=== PATIENT | male | born 1955 | race Caucasian/White ===

== ENCOUNTER → 2019-01-20 | Outpatient (REF) | payer BC | LOC: M LAB LCGH 15:06 | PROVIDERS: ATTEND Physician Assistant | DX: D48.5 Neoplasm of uncertain behavior of skin (principal) ==

== ENCOUNTER → 2021-04-27 | Outpatient (CLI) | payer BC ==
[~2021-04-27] MED LIST: ABIR250T; CALCTAB89 PO; CRAN450T4 PO; DEXA4TA PO; ELIQ5TAB; LEXA1TAB2 PO; LIDOCAINE 1% MDV 20ML VIAL As Ordered ONE; MAGN250T7 PO; MIDAZOLAM INJ 2MG/2ML VIAL (J2250 PER 1MG) As Ordered ONE; NOXI1TAB PO; NS 1,000 ML IV SCH; OMEP1CAP73 PO; ONDA8TAB10 PO; PRAV80TA2; PRED5PAK PO; PROC10TA4 PO; ceFAZolin 2 GM/D5W 50 ML IV BAG (J0690 PER 500MG) As Ordered ONE; ceFAZolin SOD 2 GM in IV 1 EA IV ONE; diphenhydrAMINE 50MG/ML VIAL (J1200) As Ordered ONE; fentaNYL 100 MCG/2 ML INJECTION (J3010) As Ordered ONE
[2021-04-27 16:11] VITALS: BP 123/57
--- NOTE | 2021-04-28 13:13 | IRPON ---
IR Postoperative Note Date Of Procedure: Apr 27, 2021 Time Of Procedure: 16:00 IR Postoperative Note IR Ultrasound and fluoroscopy guided port placement IR Ultrasound of the neck. IR Moderate sedation. Clinical indication: Prostate cancer. Physician: Dr. Stein. Procedure: The patient was advised of the benefits, risks, and alternatives of the procedure and informed consent was obtained. A time-out was performed with verification of the patient's name, MRN, site of procedure and type of procedure to be performed. The patient was positioned in the supine position on the angiographic table. The site was prepped and draped in the usual sterile fashion. Moderate sedation was performed by the physician including the presence of an independent trained RN who assisted and monitored the patient's level of consciousness and physiologic status. Following the administration of fentanyl and Versed , the physician spent 45 minutes of continuous face to face time with the patient. Ultrasound of the neck reveals a patent and compressible right internal jugular vein. A pigment pumper radiograph reveals no gross abnormality. The neck and anterior chest wall were anesthetized with lidocaine. The right internal jugular vein was accessed using a microintroducer needle under ultrasound guidance, via a lateral approach. An 018 wire was advanced into the superior vena cava, the needle was removed and a microsheath was placed. An Amplatz wire was then passed into the inferior vena cava. An incision at the internal jugular vein access site and anterior chest wall were made using a scalpel. An incision was made at the anterior chest wall. A small pocket was created using a combination of blunt and sharp dissection. A tunneling device was then used to pass the catheter from the pocket to the neck puncture site. An 8- [employer] Smart power port was then positioned in the pocket. The catheter was then measured and cut. The introducer sheath was exchanged for a peel-away sheath. The catheter was passed through the peel-away sheath into the internal jugular vein and the peel-away sheath was removed. The port tip was positioned at the cavoatrial junction. The port was then accessed with a Montgomery needle. The port flushes and aspirates well. The puncture site in the neck was closed. The chest wall incision was then closed with 2-0 Vicryl and 4-0 Monocryl. Glue and Steri- Strips were applied. A sterile dressing was then applied. The patient tolerated the procedure well and was returned to the PRU in stable condition. Estimated blood loss: <5 ml. Complications: None. Conclusion: 1. Successful placement of an 8-[employer] Smart power port via the right internal jugular vein. The port is ready for immediate use. 2. Patient to follow up in IR clinic in 2 weeks. Thank you for this referral. GREG STEIN MD Apr 28, 2021 13:13
== END ==
LOC: M IRPRO 11:29
PROVIDERS: ATTEND Specialist
DX: C61 Malignant neoplasm of prostate (principal)
CPT/HCPCS: 36561; 99152; 99153; C1769; C1788; C1894; J0690; J1200; J1642; J1644; J2250; J3010

== ENCOUNTER → 2021-05-17 | Outpatient (POV) | payer BC ==
[~2021-05-17] VITALS: Ht 172.7 cm; Wt 84.0 kg
[~2021-05-17] MED LIST changes: -LIDOCAINE 1% MDV 20ML VIAL As Ordered ONE; -MIDAZOLAM INJ 2MG/2ML VIAL (J2250 PER 1MG) As Ordered ONE; -NS 1,000 ML IV SCH; -ceFAZolin 2 GM/D5W 50 ML IV BAG (J0690 PER 500MG) As Ordered ONE; -ceFAZolin SOD 2 GM in IV 1 EA IV ONE; -diphenhydrAMINE 50MG/ML VIAL (J1200) As Ordered ONE; -fentaNYL 100 MCG/2 ML INJECTION (J3010) As Ordered ONE
[2021-05-17 08:30] VITALS: BP 121/71
--- NOTE | 2021-05-19 13:59 | IRPN ---
[facility] IR Progress Note IR Progress Note DATE: May 17, 2021 FOLLOW-UP: Patient doing well status post port placement. Denies any fevers, chills, pain or discharge from site. ON EXAMINATION: Port site healed. Glue and Steri-Strips are no longer there. No redness, fluctuance or discharge. IMPRESSION: Doing well status post port placement. Port site is healed. No further follow-up scheduled unless initiated by patient and/or referring provider. Thank you for this referral Allergies Coded Allergies: No Known Allergies (Verified Allergy, Unknown, 03/18/21) VS,Fishbone, I+O VS, Fishbone, I+O Vital Signs Date Time Temp Pulse Resp B/P (MAP) Pulse Ox O2 Delivery O2 Flow Rate FiO2 05/17/21 08:30 97.8 86 20 121/71 (88) 98 Room Air GREG VELEZ MD May 19, 2021 13:59
== END ==
LOC: M IRPOV 08:23
PROVIDERS: ATTEND Radiology Diagnostic Radiology
DX: Z45.2 Encounter for adjustment and management of vascular access device (principal)

== ENCOUNTER → 2021-09-22 | Outpatient (CLI) | payer BC ==
[~2021-09-22] MED LIST changes: +FURO20TA2 PO; +LEVO500T4 PO; +ONDA-84 PO; -ONDA8TAB10 PO; -PROC10TA4 PO; +PROC10TA5 PO
== END ==
LOC: M ONCR 12:57
PROVIDERS: ATTEND General Practice
DX: C61 Malignant neoplasm of prostate (principal); C79.51 Secondary malignant neoplasm of bone; R32 Unspecified urinary incontinence; Z93.3 Colostomy status

== ENCOUNTER 2021-10-14 08:43 | Outpatient (RCR) | payer BC ==
[~2021-10-14 08:43] MED LIST changes: +ASPI81CH33 PO; +ERLE60TA PO
== END 2021-10-29 ==
LOC: M ONCR 08:43
PROVIDERS: ATTEND General Practice
DX: C79.51 Secondary malignant neoplasm of bone (principal)

== ENCOUNTER → 2022-01-18 | Outpatient (CLI) | payer BC ==
[~2022-01-18] MED LIST changes: +XTAN40CA PO
== END ==
LOC: M ONCR 14:16
PROVIDERS: ATTEND General Practice
DX: C79.51 Secondary malignant neoplasm of bone (principal); C61 Malignant neoplasm of prostate; N36.0 Urethral fistula; K60.4 Rectal fistula; K46.9 Unspecified abdominal hernia without obstruction or gangrene; Z79.899 Other long term (current) drug therapy; Z79.82 Long term (current) use of aspirin; Z92.21 Personal history of antineoplastic chemotherapy; Z92.3 Personal history of irradiation; Z93.3 Colostomy status

== ENCOUNTER → 2023-10-11 | Outpatient (CLI) | payer MEDICARE ==
[~2023-10-11] MED LIST changes: +BACTDSTA PO; +BUSP5TA; +GALZ25CA PO; +GLYCCAP PO; +LEVO1TAB39 PO; -LEVO500T4 PO; +NEPHTAB2 PO; +ONETAB9 PO; +OXYB10TA23; +PRED5TA PO; +TRAN650T PO
== END ==
LOC: M ONCR 10:37
PROVIDERS: ATTEND General Practice
DX: R31.0 Gross hematuria (principal); C61 Malignant neoplasm of prostate; C79.51 Secondary malignant neoplasm of bone; C79.11 Secondary malignant neoplasm of bladder; Z71.2 Person consulting for explanation of examination or test findings; Z79.818 Long term (current) use of other agents affecting estrogen receptors and estrogen levels; Z79.82 Long term (current) use of aspirin; Z79.899 Other long term (current) drug therapy; Z90.79 Acquired absence of other genital organ(s); Z92.21 Personal history of antineoplastic chemotherapy; Z92.3 Personal history of irradiation; Z93.3 Colostomy status

== ENCOUNTER 2023-10-16 22:35 | Inpatient (IN) | payer MEDICARE ==
[~2023-10-16] VITALS: Ht 172.7 cm; Wt 97.7 kg
[~2023-10-16 22:35] MED LIST changes: -BUSP5TA; +BUSP5TA PO; -PRAV80TA2; +PRAV80TA2 PO
[2023-10-17] VITALS (17 sets, daily range): BP systolic 112–189; BP diastolic 57–89; TEMP 96.1–98; O2SAT 91–100
[2023-10-17 00:45] LABS: BASO % 0.3 % (0.0-1.0); HEMATOCRIT 23.8 % (42.0-52.0); HEMOGLOBIN 8.1 g/dl (13.5-17.5); LYMPH # 0.4 10^3/uL (1.5-5.0); LYMPH % 5.4 % (24.0-44.0); MEAN CORPUSCULAR HEMOGLOBIN 32.7 pg (27.0-33.0); MONO # 0.6 10^3/uL (0.0-0.8); MONO % 7.7 % (2.0-8.0); NEUTROPHILS # 6.5 10^3/uL (1.5-8.5); NEUTROPHILS % 86.2 % (36.0-66.0); RED BLOOD COUNT 2.48 10^6/uL (4.30-6.10); WHITE BLOOD COUNT 7.6 10^3/uL (4.0-10.0)
[2023-10-17 01:07] LABS: IRON (FE) 31 UG/DL (65-175)
[2023-10-17 01:08] LABS: ALKALINE PHOSPHATASE 90 U/L (46-116); ALT/SGPT 20 U/L (7.0-40); AST/SGOT 31 U/L (<34); BILIRUBIN,TOTAL 0.5 MG/DL (0.3-1.2); BLOOD UREA NITROGEN 20 MG/DL (9-23); CALCIUM LEVEL 8.7 MG/DL (8.3-10.6); CARBON DIOXIDE LEVEL 23 MMOL/L (20-31); CHLORIDE LEVEL 107 MMOL/L (98-107); CREATININE FOR GFR 0.99 MG/DL (0.70-1.30); GLOMERULAR FILTRATION RATE > 60.0 (>49); GLUCOSE, FASTING 161 MG/DL (74-106); MAGNESIUM LEVEL 1.4 MG/DL (1.8-2.4); PERCENT SATURATION 12.7 % (19.7-50.0); POTASSIUM SERUM 3.5 MMOL/L (3.5-5.1); SODIUM LEVEL 137 MMOL/L (136-145); TOTAL IRON BINDING CAPACITY 245 UG/DL (250-425); TOTAL PROTEIN 5.7 G/DL (5.7-8.2)
[2023-10-17 01:26] LABS: PLATELET COUNT, AUTOMATED 70 10^3/uL (150-450)
[2023-10-17 01:38] LABS: PSA SCREENING 158.68 NG/ML (< 4.00)
[2023-10-17] MEDS: NS 1,000 ML IV ONE (03:40)
[2023-10-17] MEDS ORDERED: ONDANSETRON 4MG 2ML VIAL IV PRN ×2 (03:55→13:45)
[2023-10-17] MEDS ORDERED: NS 1,000 ML IV SCH (03:55)
[2023-10-17] MEDS ORDERED: ALBUTEROL SULFATE 2.5MG/0.5ML INH NEB SOLN NEB PRN (03:55)
[2023-10-17 03:56] LABS: BASO % 0.3 % (0.0-1.0); HEMATOCRIT 22.3 % (42.0-52.0); HEMOGLOBIN 7.6 g/dl (13.5-17.5); LYMPH # 1.2 10^3/uL (1.5-5.0); MEAN CORPUSCULAR HEMOGLOBIN 32.8 pg (27.0-33.0); MEAN CORPUSCULAR HGB CONC 34.1 g/dl (32.0-36.5); MEAN CORPUSCULAR VOLUME 96.1 fl (80.0-96.0); MONO # 0.6 10^3/uL (0.0-0.8); MONO % 7.8 % (2.0-8.0); NEUTROPHILS # 6.1 10^3/uL (1.5-8.5); NEUTROPHILS % 76.6 % (36.0-66.0); RED BLOOD COUNT 2.32 10^6/uL (4.30-6.10); WHITE BLOOD COUNT 7.9 10^3/uL (4.0-10.0)
[2023-10-17 04:01] LABS: PLATELET COUNT, AUTOMATED 82 10^3/uL (150-450)
[2023-10-17] MEDS: HYDROMORPHONE HCL 0.5 MG/ 0.5 ML SYRINGE IV PRN (05:57)
[2023-10-17] MEDS: HYOSCYAMINE SULFATE 0.125 MG SUBL TABLET PO ONE (07:08)
[2023-10-17] MEDS ORDERED: XTAN40CA PO (08:02)
[2023-10-17] MEDS: TAMSULOSIN 0.4 MG CAP PO SCH (08:21)
[2023-10-17] MEDS ORDERED: PRED5TA PO (08:21)
[2023-10-17] MEDS ORDERED: MAGN500T12 PO (08:21)
[2023-10-17] MEDS: LR 1,000 ML IV SCH ×2 (08:27→14:51)
[2023-10-17] MEDS ORDERED: HYOSCYAMINE SULFATE 0.125 MG SUBL TABLET PO SCH (09:00)
[2023-10-17] MEDS ORDERED: HOME MED LIST COMPLETE! XX SCH (09:10)
[2023-10-17 09:50] LABS: HEMATOCRIT 25.2 % (42.0-52.0); HEMOGLOBIN 8.5 g/dl (13.5-17.5); MEAN CORPUSCULAR HGB CONC 33.7 g/dl (32.0-36.5); MEAN CORPUSCULAR VOLUME 94.7 fl (80.0-96.0); RED BLOOD COUNT 2.66 10^6/uL (4.30-6.10); WHITE BLOOD COUNT 11.7 10^3/uL (4.0-10.0)
[2023-10-17 09:54] LABS: PLATELET COUNT, AUTOMATED 91 10^3/uL (150-450)
[2023-10-17 10:00] LABS: INR 1.16; PARTIAL THROMBOPLASTIN TIME 27.3 SECONDS (24.8-34.2); PROTHROMBIN TIME 14.4 SECONDS (12.5-14.5)
[2023-10-17] MEDS: HYOSCYAMINE SULFATE 0.125 MG SUBL TABLET PO PRN (10:16)
[2023-10-17] MEDS ORDERED: propofoL 200 MG/20 ML VIAL As Ordered ONE (13:17)
[2023-10-17] MEDS ORDERED: ACETAMINOPHEN 1000MG 100ML IV BAG As Ordered ONE (13:17)
[2023-10-17] MEDS ORDERED: fentaNYL 100 MCG/2 ML INJECTION As Ordered ONE (13:17)
[2023-10-17] MEDS ORDERED: LIDOCAINE 2% 100MG/5ML SDV (FOR ANES.) As Ordered ONE (13:17)
[2023-10-17] MEDS ORDERED: ONDANSETRON 4MG 2ML VIAL As Ordered ONE (13:17)
[2023-10-17] MEDS ORDERED: MIDAZOLAM INJ 2MG/2ML VIAL As Ordered ONE (13:17)
[2023-10-17] MEDS ORDERED: ePHEDrine SULFATE 25 MG/5 ML(5MG/ML) SYRINGE As Ordered ONE (13:19)
[2023-10-17] MEDS ORDERED: fentaNYL 100 MCG/2 ML INJECTION IV PRN (13:45)
[2023-10-17] MEDS ORDERED: HYDROMORPHONE HCL 0.5 MG/ 0.5 ML SYRINGE IV PRN (13:45)
[2023-10-17] MEDS ORDERED: oxyCODONE 5MG TAB PO PRN (13:45)
[2023-10-17 16:02] LABS: HEMATOCRIT 21.2 % (42.0-52.0); HEMOGLOBIN 7.1 g/dl (13.5-17.5); MEAN CORPUSCULAR HEMOGLOBIN 32.1 pg (27.0-33.0); MEAN CORPUSCULAR HGB CONC 33.5 g/dl (32.0-36.5); MEAN CORPUSCULAR VOLUME 95.9 fl (80.0-96.0); RED BLOOD COUNT 2.21 10^6/uL (4.30-6.10); WHITE BLOOD COUNT 10.4 10^3/uL (4.0-10.0)
[2023-10-17 16:03] LABS: PLATELET COUNT, AUTOMATED 90 10^3/uL (150-450)
[2023-10-17] MEDS: oxyBUTYnin 5 MG TAB PO PRN (20:42)
[2023-10-17 22:50] LABS: HEMATOCRIT 23.4 % (42.0-52.0); MEAN CORPUSCULAR HEMOGLOBIN 31.7 pg (27.0-33.0); MEAN CORPUSCULAR HGB CONC 34.2 g/dl (32.0-36.5); MEAN CORPUSCULAR VOLUME 92.9 fl (80.0-96.0); PLATELET COUNT, AUTOMATED 101 10^3/uL (150-450); RED BLOOD COUNT 2.52 10^6/uL (4.30-6.10); WHITE BLOOD COUNT 8.7 10^3/uL (4.0-10.0)
[2023-10-18 03:50] VITALS: BP 110/68; TEMP 97.8; O2SAT 95
[2023-10-18 06:10] LABS: HEMATOCRIT 23.5 % (42.0-52.0); HEMOGLOBIN 8.1 g/dl (13.5-17.5); MEAN CORPUSCULAR HEMOGLOBIN 32.1 pg (27.0-33.0); MEAN CORPUSCULAR HGB CONC 34.5 g/dl (32.0-36.5); MEAN CORPUSCULAR VOLUME 93.3 fl (80.0-96.0); PLATELET COUNT, AUTOMATED 102 10^3/uL (150-450); RED BLOOD COUNT 2.52 10^6/uL (4.30-6.10); WHITE BLOOD COUNT 6.9 10^3/uL (4.0-10.0)
[2023-10-18 06:25] LABS: CALCIUM LEVEL 7.8 MG/DL (8.3-10.6); CREATININE FOR GFR 1.49 MG/DL (0.70-1.30); GLOMERULAR FILTRATION RATE 50.2 (>49); POTASSIUM SERUM 3.9 MMOL/L (3.5-5.1)
[2023-10-18 07:55] VITALS: BP 114/77; TEMP 97.3; O2SAT 95
[2023-10-18 11:44] VITALS: BP 109/56; TEMP 97.7; O2SAT 91
[2023-10-18] MEDS: ACETAMINOPHEN TAB 650MG DOSE (2X325MG) PO PRN (14:45)
[2023-10-18 16:24] VITALS: BP 129/69; TEMP 98.6; O2SAT 95
[2023-10-18] MEDS: PHENAZOPYRIDINE 100 MG TAB PO PRN (16:48)
[2023-10-18 18:28] LABS: HEMATOCRIT 23.2 % (42.0-52.0); HEMOGLOBIN 7.6 g/dl (13.5-17.5); MEAN CORPUSCULAR HEMOGLOBIN 32.3 pg (27.0-33.0); MEAN CORPUSCULAR HGB CONC 32.8 g/dl (32.0-36.5); MEAN CORPUSCULAR VOLUME 98.7 fl (80.0-96.0); RED BLOOD COUNT 2.35 10^6/uL (4.30-6.10); WHITE BLOOD COUNT 8.9 10^3/uL (4.0-10.0)
[2023-10-18 18:49] LABS: PLATELET COUNT, AUTOMATED 90 10^3/uL (150-450)
[2023-10-18 18:57] VITALS: BP 109/72; TEMP 98.3; O2SAT 97
[2023-10-18] MEDS: PRAVASTATIN 20 MG TAB PO SCH (20:46)
[2023-10-18] MEDS: busPIRone 5 MG TAB PO SCH (20:47)
[2023-10-18 23:41] LABS: MEAN CORPUSCULAR HEMOGLOBIN 32.4 pg (27.0-33.0); MEAN CORPUSCULAR HGB CONC 34.3 g/dl (32.0-36.5); MEAN CORPUSCULAR VOLUME 94.3 fl (80.0-96.0); WHITE BLOOD COUNT 7.6 10^3/uL (4.0-10.0)
[2023-10-18 23:44] LABS: HEMATOCRIT 19.8 % (42.0-52.0); HEMOGLOBIN 6.8 g/dl (13.5-17.5); PLATELET COUNT, AUTOMATED 76 10^3/uL (150-450)
[2023-10-19] VITALS (10 sets, daily range): BP systolic 103–118; BP diastolic 51–78; TEMP 97–99.5; O2SAT 93–97
[2023-10-19 07:11] LABS: HEMOGLOBIN 8.2 g/dl (13.5-17.5); MEAN CORPUSCULAR HEMOGLOBIN 31.5 pg (27.0-33.0); MEAN CORPUSCULAR HGB CONC 34.2 g/dl (32.0-36.5); MEAN CORPUSCULAR VOLUME 92.3 fl (80.0-96.0); WHITE BLOOD COUNT 8.2 10^3/uL (4.0-10.0)
[2023-10-19 07:19] LABS: PLATELET COUNT, AUTOMATED 86 10^3/uL (150-450)
[2023-10-19 07:20] LABS: CALCIUM LEVEL 7.8 MG/DL (8.3-10.6); CREATININE FOR GFR 1.53 MG/DL (0.70-1.30); GLOMERULAR FILTRATION RATE 48.7 (>49); POTASSIUM SERUM 3.9 MMOL/L (3.5-5.1)
[2023-10-19] MEDS: predniSONE 5 MG TAB PO SCH (09:06)
[2023-10-19] MEDS: ESCITALOPRAM OXALATE 10 MG TAB (LEXAPRO) PO SCH (09:06)
[2023-10-19 19:19] LABS: HEMATOCRIT 24.3 % (42.0-52.0); HEMOGLOBIN 8.1 g/dl (13.5-17.5); MEAN CORPUSCULAR HEMOGLOBIN 31.6 pg (27.0-33.0); MEAN CORPUSCULAR HGB CONC 33.3 g/dl (32.0-36.5); MEAN CORPUSCULAR VOLUME 94.9 fl (80.0-96.0); RED BLOOD COUNT 2.56 10^6/uL (4.30-6.10)
[2023-10-19 19:20] LABS: PLATELET COUNT, AUTOMATED 85 10^3/uL (150-450)
[2023-10-19] MEDS: ceFAZolin SOD 1 GM in D5W MINI-BAG PLUS 50 ML IV SCH (21:48)
[2023-10-20] VITALS (10 sets, daily range): BP systolic 114–132; BP diastolic 63–84; TEMP 97.2–99.2; O2SAT 92–96
[2023-10-20 06:24] LABS: BASO % 0.3 % (0.0-1.0); EOS % 0.1 % (0.0-3.0); HEMATOCRIT 23.1 % (42.0-52.0); HEMOGLOBIN 7.9 g/dl (13.5-17.5); LYMPH # 0.7 10^3/uL (1.5-5.0); MEAN CORPUSCULAR HEMOGLOBIN 31.9 pg (27.0-33.0); MEAN CORPUSCULAR HGB CONC 34.2 g/dl (32.0-36.5); MEAN CORPUSCULAR VOLUME 93.1 fl (80.0-96.0); MONO # 0.8 10^3/uL (0.0-0.8); MONO % 10.9 % (2.0-8.0); NEUTROPHILS # 5.9 10^3/uL (1.5-8.5); NEUTROPHILS % 79.2 % (36.0-66.0); RED BLOOD COUNT 2.48 10^6/uL (4.30-6.10); WHITE BLOOD COUNT 7.4 10^3/uL (4.0-10.0)
[2023-10-20 06:26] LABS: PLATELET COUNT, AUTOMATED 86 10^3/uL (150-450)
[2023-10-20 06:45] LABS: CALCIUM LEVEL 7.8 MG/DL (8.3-10.6); CREATININE FOR GFR 1.65 MG/DL (0.70-1.30); GLOMERULAR FILTRATION RATE 44.7 (>49); POTASSIUM SERUM 3.9 MMOL/L (3.5-5.1)
[2023-10-20] MEDS: PHENAZOPYRIDINE 100 MG TAB PO PRN (10:36)
[2023-10-20] MEDS ORDERED: ONDANSETRON 4MG 2ML VIAL IV PRN (11:20)
[2023-10-20] MEDS ORDERED: PILL CUTTER 1 EACH XX PRN (11:30)
[2023-10-20] MEDS: MORPHINE 4 MG/ML 1ML VIAL IV ONE (12:09)
[2023-10-20] MEDS: oxyCODONE 5MG TAB PO ONE (13:45)
[2023-10-20] MEDS: MORPHINE 30 MG TAB **MSIR PO PRN (17:57)
[2023-10-20 18:46] LABS: BASO % 0.3 % (0.0-1.0); EOS % 0.1 % (0.0-3.0); HEMATOCRIT 28.8 % (42.0-52.0); LYMPH # 0.7 10^3/uL (1.5-5.0); MEAN CORPUSCULAR HEMOGLOBIN 31.9 pg (27.0-33.0); MEAN CORPUSCULAR HGB CONC 34.7 g/dl (32.0-36.5); MONO # 0.8 10^3/uL (0.0-0.8); MONO % 10.2 % (2.0-8.0); NEUTROPHILS # 6.2 10^3/uL (1.5-8.5); NEUTROPHILS % 79.9 % (36.0-66.0); RED BLOOD COUNT 3.13 10^6/uL (4.30-6.10); WHITE BLOOD COUNT 7.8 10^3/uL (4.0-10.0)
[2023-10-20 18:54] LABS: PLATELET COUNT, AUTOMATED 98 10^3/uL (150-450)
[2023-10-20] MEDS: oxyCODONE 5MG TAB PO PRN (22:00)
[2023-10-21] VITALS: BP 112/65; TEMP 97.2; O2SAT 94
[2023-10-21 04:00] VITALS: BP 126/70; TEMP 97.7; O2SAT 96
[2023-10-21 05:39] LABS: BASO % 0.5 % (0.0-1.0); EOS % 0.7 % (0.0-3.0); HEMATOCRIT 28.2 % (42.0-52.0); HEMOGLOBIN 9.2 g/dl (13.5-17.5); LYMPH # 0.8 10^3/uL (1.5-5.0); LYMPH % 12.7 % (24.0-44.0); MEAN CORPUSCULAR HEMOGLOBIN 30.9 pg (27.0-33.0); MEAN CORPUSCULAR HGB CONC 32.6 g/dl (32.0-36.5); MEAN CORPUSCULAR VOLUME 94.6 fl (80.0-96.0); MONO # 0.7 10^3/uL (0.0-0.8); MONO % 12.6 % (2.0-8.0); NEUTROPHILS # 4.3 10^3/uL (1.5-8.5); NEUTROPHILS % 73.2 % (36.0-66.0); PLATELET COUNT, AUTOMATED 102 10^3/uL (150-450); RED BLOOD COUNT 2.98 10^6/uL (4.30-6.10); WHITE BLOOD COUNT 5.9 10^3/uL (4.0-10.0)
[2023-10-21 06:07] LABS: CALCIUM LEVEL 7.8 MG/DL (8.3-10.6); CREATININE FOR GFR 1.81 MG/DL (0.70-1.30); GLOMERULAR FILTRATION RATE 40.1 (>49); POTASSIUM SERUM 3.9 MMOL/L (3.5-5.1)
[2023-10-21 07:25] VITALS: BP 125/79; TEMP 97.1; O2SAT 91
[2023-10-21 16:32] VITALS: BP 120/70; TEMP 98.8; O2SAT 92
[2023-10-21 18:33] VITALS: BP 132/66; TEMP 97; O2SAT 97
[2023-10-21 20:55] VITALS: BP 133/72; TEMP 96.6; O2SAT 93
[2023-10-22 05:24] VITALS: BP 129/73; TEMP 96.6; O2SAT 97
[2023-10-22 06:18] LABS: BASO # 0.1 10^3/uL (0.0-0.2); BASO % 0.8 % (0.0-1.0); EOS # 0.1 10^3/uL (0.0-0.5); HEMATOCRIT 29.2 % (42.0-52.0); HEMOGLOBIN 9.8 g/dl (13.5-17.5); LYMPH # 0.8 10^3/uL (1.5-5.0); LYMPH % 12.7 % (24.0-44.0); MEAN CORPUSCULAR HEMOGLOBIN 31.2 pg (27.0-33.0); MEAN CORPUSCULAR HGB CONC 33.6 g/dl (32.0-36.5); MONO % 15.5 % (2.0-8.0); NEUTROPHILS # 4.3 10^3/uL (1.5-8.5); NEUTROPHILS % 69.5 % (36.0-66.0); PLATELET COUNT, AUTOMATED 111 10^3/uL (150-450); RED BLOOD COUNT 3.14 10^6/uL (4.30-6.10); WHITE BLOOD COUNT 6.2 10^3/uL (4.0-10.0)
[2023-10-22 06:48] LABS: CALCIUM LEVEL 7.9 MG/DL (8.3-10.6); CREATININE FOR GFR 1.46 MG/DL (0.70-1.30); GLOMERULAR FILTRATION RATE 51.4 (>49); POTASSIUM SERUM 3.9 MMOL/L (3.5-5.1)
[2023-10-22 14:00] VITALS: BP 128/74; TEMP 96.6; O2SAT 94
[2023-10-22 21:09] VITALS: BP 124/77; TEMP 97; O2SAT 99
[2023-10-23 05:47] VITALS: BP 138/99; TEMP 97; O2SAT 98
[2023-10-23 06:34] LABS: BASO % 0.7 % (0.0-1.0); EOS # 0.1 10^3/uL (0.0-0.5); EOS % 1.4 % (0.0-3.0); HEMATOCRIT 29.3 % (42.0-52.0); HEMOGLOBIN 9.7 g/dl (13.5-17.5); LYMPH # 0.8 10^3/uL (1.5-5.0); LYMPH % 13.4 % (24.0-44.0); MEAN CORPUSCULAR HEMOGLOBIN 31.1 pg (27.0-33.0); MEAN CORPUSCULAR HGB CONC 33.1 g/dl (32.0-36.5); MEAN CORPUSCULAR VOLUME 93.9 fl (80.0-96.0); MONO # 0.8 10^3/uL (0.0-0.8); MONO % 14.1 % (2.0-8.0); NEUTROPHILS % 70.1 % (36.0-66.0); PLATELET COUNT, AUTOMATED 106 10^3/uL (150-450); RED BLOOD COUNT 3.12 10^6/uL (4.30-6.10); WHITE BLOOD COUNT 5.8 10^3/uL (4.0-10.0)
[2023-10-23 07:05] LABS: CALCIUM LEVEL 8.3 MG/DL (8.3-10.6); CREATININE FOR GFR 1.36 MG/DL (0.70-1.30); GLOMERULAR FILTRATION RATE 55.8 (>49)
[2023-10-23] MEDS ORDERED: OXYC-517 PO (08:42)
[2023-10-23] MEDS ORDERED: FLOM0.4C39 PO (08:42)
[2023-10-23] MEDS: SIMETHICONE 80MG CHEW TAB PO SCH (10:48)
[2023-10-23] MEDS ORDERED: COLA100C5 PO (13:13)
[2023-10-23] MEDS ORDERED: SENN-186 PO (13:13)
== END 2023-10-23 16:01 | disposition home or self-care (01) | DRG 663 ==
LOC: M ED 22:35 → M ED INP 10-17 03:55 → ENRESERV 10-17 04:48 → M PCU 10-17 05:39 → M ED INP 10-21 10:08 → M PCU 10-21 10:08 → M MSPAV 10-21 18:25
PROVIDERS: ADMIT Internal Medicine; ATTEND Internal Medicine Nephrology
PROC: 30233N1 Transfusion of Nonautologous Red Blood Cells into Peripheral Vein, Percutaneous Approach (ICD-10-PCS; 2023-10-17)
PROC: 30233R1 Transfusion of Nonautologous Platelets into Peripheral Vein, Percutaneous Approach (ICD-10-PCS; 2023-10-17)
PROC: 0TCB8ZZ Extirpation of Matter from Bladder, Via Natural or Artificial Opening Endoscopic (ICD-10-PCS; 2023-10-17)
PROC: 0W3R8ZZ Control Bleeding in Genitourinary Tract, Via Natural or Artificial Opening Endoscopic (ICD-10-PCS; principal; 2023-10-17 13:00)
DX: N30.41 Irradiation cystitis with hematuria (principal); C79.51 Secondary malignant neoplasm of bone; C78.7 Secondary malignant neoplasm of liver and intrahepatic bile duct; C79.11 Secondary malignant neoplasm of bladder; C77.2 Secondary and unspecified malignant neoplasm of intra-abdominal lymph nodes; N17.9 Acute kidney failure, unspecified; D62 Acute posthemorrhagic anemia; N13.30 Unspecified hydronephrosis; N32.1 Vesicointestinal fistula; D64.81 Anemia due to antineoplastic chemotherapy; C61 Malignant neoplasm of prostate; N32.89 Other specified disorders of bladder; R32 Unspecified urinary incontinence; R33.9 Retention of urine, unspecified; D75.89 Other specified diseases of blood and blood-forming organs; I48.91 Unspecified atrial fibrillation; T45.1X5A Adverse effect of antineoplastic and immunosuppressive drugs, initial encounter; F41.9 Anxiety disorder, unspecified; K43.5 Parastomal hernia without obstruction or gangrene; Z79.52 Long term (current) use of systemic steroids; Z79.82 Long term (current) use of aspirin; Z79.899 Other long term (current) drug therapy; Z96.0 Presence of urogenital implants

== ENCOUNTER 2023-10-26 15:24 | Inpatient (IN) | payer MEDICARE ==
[~2023-10-26] VITALS: Ht 172.7 cm; Wt 95.9 kg
[2023-10-26] MEDS: SODIUM CHLORIDE 0.9% INJ 10 ML SYR IV SCH (09:00)
[~2023-10-26 15:24] MED LIST changes: +COLA100C5 PO; +FLOM0.4C39 PO; +MAGN500T12 PO; +OXYC-517 PO; +SENN-186 PO
[2023-10-26] MEDS ORDERED: SENN-186 PO (17:00)
[2023-10-26] MEDS ORDERED: OXYC-517 PO (17:00)
[2023-10-26] MEDS ORDERED: TAMS1CAP17 PO (17:00)
[2023-10-26] MEDS ORDERED: DOCU100C16 PO (17:03)
[2023-10-26] MEDS ORDERED: HOME MED LIST COMPLETE! XX SCH (17:05)
[2023-10-26 17:12] LABS: BASO % 0.2 % (0.0-1.0); EOS % 0.2 % (0.0-3.0); HEMATOCRIT 27.1 % (42.0-52.0); HEMOGLOBIN 9.1 g/dl (13.5-17.5); LYMPH # 0.6 10^3/uL (1.5-5.0); LYMPH % 7.1 % (24.0-44.0); MEAN CORPUSCULAR HEMOGLOBIN 31.3 pg (27.0-33.0); MEAN CORPUSCULAR HGB CONC 33.6 g/dl (32.0-36.5); MEAN CORPUSCULAR VOLUME 93.1 fl (80.0-96.0); MONO # 0.8 10^3/uL (0.0-0.8); MONO % 9.2 % (2.0-8.0); NEUTROPHILS # 6.8 10^3/uL (1.5-8.5); NEUTROPHILS % 82.3 % (36.0-66.0); PLATELET COUNT, AUTOMATED 154 10^3/uL (150-450); RED BLOOD COUNT 2.91 10^6/uL (4.30-6.10); WHITE BLOOD COUNT 8.3 10^3/uL (4.0-10.0)
[2023-10-26 17:19] LABS: INR 1.4; PARTIAL THROMBOPLASTIN TIME 33.8 SECONDS (24.8-34.2); PROTHROMBIN TIME 16.7 SECONDS (12.5-14.5)
[2023-10-26 17:36] LABS: LIPASE 19 U/L (12-53)
[2023-10-26 17:54] LABS: ALBUMIN 2.5 G/DL (3.2-5.2); ALKALINE PHOSPHATASE 485 U/L (46-116); ALT/SGPT 61 U/L (7.0-40); AST/SGOT 124 U/L (<34); BILIRUBIN,DIRECT 0.5 MG/DL (<0.4); BILIRUBIN,TOTAL 0.8 MG/DL (0.3-1.2); BLOOD UREA NITROGEN 20 MG/DL (9-23); CALCIUM LEVEL 8.3 MG/DL (8.3-10.6); CARBON DIOXIDE LEVEL 24 MMOL/L (20-31); CHLORIDE LEVEL 97 MMOL/L (98-107); CREATININE FOR GFR 1.26 MG/DL (0.70-1.30); GLOMERULAR FILTRATION RATE > 60.0 (>49); GLUCOSE, FASTING 107 MG/DL (74-106); SODIUM LEVEL 131 MMOL/L (136-145); TOTAL PROTEIN 5.7 G/DL (5.7-8.2)
[2023-10-26] MEDS ORDERED: ISOVUE-370 76% 100ML VIAL As Ordered ONE (18:48)
[2023-10-26] MEDS: MORPHINE 4 MG/ML 1ML VIAL IV ONE (19:14)
[2023-10-26] MEDS: LIDOCAINE 2% 5ML JELLY UROJET TOP ONE (22:35)
[2023-10-26] MEDS: HYDROMORPHONE HCL 0.5 MG/ 0.5 ML SYRINGE IV PRN (22:55)
[2023-10-26 23:31] LABS: HEMATOCRIT 23.5 % (42.0-52.0)
[2023-10-26 23:34] VITALS: BP 145/81; TEMP 97.7; O2SAT 99
[2023-10-26] MEDS: D5W/LR 1,000 ML IV SCH (23:38)
[2023-10-27] VITALS (14 sets, daily range): BP systolic 123–144; BP diastolic 69–93; TEMP 96.8–98.6; O2SAT 93–97
[2023-10-27] MEDS: busPIRone 5 MG TAB PO SCH (00:15)
[2023-10-27] MEDS: PRAVASTATIN 20 MG TAB PO SCH (00:15)
[2023-10-27] MEDS: ONDANSETRON 4MG 2ML VIAL IV PRN (01:02)
[2023-10-27 06:43] LABS: HEMATOCRIT 21.7 % (42.0-52.0); HEMOGLOBIN 7.3 g/dl (13.5-17.5)
[2023-10-27 07:19] LABS: CALCIUM LEVEL 7.6 MG/DL (8.3-10.6); CREATININE FOR GFR 1.3 MG/DL (0.70-1.30); GLOMERULAR FILTRATION RATE 58.8 (>49); POTASSIUM SERUM 3.5 MMOL/L (3.5-5.1)
[2023-10-27] MEDS: SUCRALFATE SUSP 1GM/10ML UD PO SCH (08:32)
[2023-10-27] MEDS: PANTOPRAZOLE 40MG TAB (PROTONIX) PO SCH (08:32)
[2023-10-27] MEDS: ESCITALOPRAM OXALATE 10 MG TAB (LEXAPRO) PO SCH (08:33)
[2023-10-27] MEDS: predniSONE 10MG TAB PO SCH (08:33)
[2023-10-27 08:34] LABS: HEMATOCRIT 23.2 % (42.0-52.0); HEMOGLOBIN 7.8 g/dl (13.5-17.5)
[2023-10-27 08:57] LABS: PERCENT SATURATION 23.9 % (19.7-50.0)
[2023-10-27 08:59] LABS: FERRITIN 1347.2 NG/ML (10.5-307.3)
[2023-10-27] MEDS: SODIUM CHLORIDE 0.9% INJ 10 ML SYR IV SCH (09:00)
[2023-10-27 10:35] LABS: HEMATOCRIT 22.5 % (42.0-52.0); HEMOGLOBIN 7.5 g/dl (13.5-17.5)
[2023-10-27] MEDS: PERCOCET 5MG/325MG TAB PO ONE (10:43)
[2023-10-27] MEDS: cefTRIAXone SOD 1 GM in D5W MINI-BAG PLUS 50 ML IV SCH (15:00)
[2023-10-27] MEDS: PERCOCET 5MG/325MG TAB PO PRN (16:51)
[2023-10-27] MEDS: LACTOBACILLUS ACIDOPHILUS CAP (BACID) PO SCH (17:50)
[2023-10-27 17:54] LABS: HEMATOCRIT 29.8 % (42.0-52.0)
[2023-10-27 18:02] LABS: HEMOGLOBIN 10.1 g/dl (13.5-17.5)
[2023-10-28 00:23] LABS: HEMATOCRIT 27.6 % (42.0-52.0); HEMOGLOBIN 9.5 g/dl (13.5-17.5)
[2023-10-28 02:00] VITALS: BP 123/73; TEMP 97.2; O2SAT 96
[2023-10-28 05:10] VITALS: BP 133/72; TEMP 97; O2SAT 97
[2023-10-28 06:33] LABS: HEMATOCRIT 29.6 % (42.0-52.0); HEMOGLOBIN 10.1 g/dl (13.5-17.5); MEAN CORPUSCULAR HEMOGLOBIN 31.4 pg (27.0-33.0); MEAN CORPUSCULAR HGB CONC 34.1 g/dl (32.0-36.5); MEAN CORPUSCULAR VOLUME 91.9 fl (80.0-96.0); PLATELET COUNT, AUTOMATED 111 10^3/uL (150-450); RED BLOOD COUNT 3.22 10^6/uL (4.30-6.10); WHITE BLOOD COUNT 6.7 10^3/uL (4.0-10.0)
[2023-10-28 07:08] LABS: CALCIUM LEVEL 7.7 MG/DL (8.3-10.6); CREATININE FOR GFR 1.38 MG/DL (0.70-1.30); GLOMERULAR FILTRATION RATE 54.9 (>49); POTASSIUM SERUM 3.7 MMOL/L (3.5-5.1)
[2023-10-28] MEDS: NS 1,000 ML IV ONE (08:30)
[2023-10-28] MEDS: TAMSULOSIN 0.4 MG CAP PO SCH (08:55)
[2023-10-28 10:00] VITALS: BP 128/73; TEMP 97.3; O2SAT 96
[2023-10-28] MEDS: SENOKOT S TAB PO PRN (10:24)
[2023-10-28 14:00] VITALS: BP 134/86; TEMP 97; O2SAT 98
[2023-10-28 18:00] VITALS: BP 140/80; TEMP 97.2; O2SAT 99
[2023-10-28 22:00] VITALS: BP 140/83; TEMP 97.3; O2SAT 98
[2023-10-29 06:00] VITALS: BP 145/85; TEMP 97.2; O2SAT 94
[2023-10-29 06:44] LABS: HEMATOCRIT 27.7 % (42.0-52.0); HEMOGLOBIN 9.5 g/dl (13.5-17.5); MEAN CORPUSCULAR HEMOGLOBIN 31.1 pg (27.0-33.0); MEAN CORPUSCULAR HGB CONC 34.3 g/dl (32.0-36.5); MEAN CORPUSCULAR VOLUME 90.8 fl (80.0-96.0); PLATELET COUNT, AUTOMATED 106 10^3/uL (150-450); RED BLOOD COUNT 3.05 10^6/uL (4.30-6.10)
[2023-10-29 08:03] LABS: BLOOD UREA NITROGEN 14 MG/DL (9-23); CALCIUM LEVEL 7.2 MG/DL (8.3-10.6); CARBON DIOXIDE LEVEL 22 MMOL/L (20-31); CHLORIDE LEVEL 98 MMOL/L (98-107); CREATININE FOR GFR 1.12 MG/DL (0.70-1.30); GLOMERULAR FILTRATION RATE > 60.0 (>49); GLUCOSE, FASTING 119 MG/DL (74-106); POTASSIUM SERUM 3.7 MMOL/L (3.5-5.1); SODIUM LEVEL 129 MMOL/L (136-145)
[2023-10-29] MEDS ORDERED: FUROSEMIDE 20MG/2ML VIAL ONE (12:35)
[2023-10-29 14:00] VITALS: BP 142/86; TEMP 97.2; O2SAT 98
[2023-10-29 18:00] VITALS: BP 125/76; TEMP 97.3; O2SAT 97
[2023-10-29] MEDS: RAMELTEON 8 MG TAB (ROZEREM) PO PRN (21:16)
[2023-10-29 22:10] VITALS: BP 130/80; TEMP 97.9; O2SAT 97
[2023-10-30 01:50] VITALS: BP 134/80; TEMP 97.2; O2SAT 98
[2023-10-30 06:00] VITALS: BP 157/98; TEMP 97.3; O2SAT 96
[2023-10-30 07:03] LABS: HEMATOCRIT 25.9 % (42.0-52.0); HEMOGLOBIN 8.8 g/dl (13.5-17.5); MEAN CORPUSCULAR HEMOGLOBIN 30.8 pg (27.0-33.0); MEAN CORPUSCULAR VOLUME 90.6 fl (80.0-96.0); RED BLOOD COUNT 2.86 10^6/uL (4.30-6.10); WHITE BLOOD COUNT 9.1 10^3/uL (4.0-10.0)
[2023-10-30 07:11] LABS: PLATELET COUNT, AUTOMATED 91 10^3/uL (150-450)
[2023-10-30 07:30] LABS: BLOOD UREA NITROGEN 13 MG/DL (9-23); CALCIUM LEVEL 7.3 MG/DL (8.3-10.6); CARBON DIOXIDE LEVEL 23 MMOL/L (20-31); CHLORIDE LEVEL 98 MMOL/L (98-107); CREATININE FOR GFR 1.16 MG/DL (0.70-1.30); GLOMERULAR FILTRATION RATE > 60.0 (>49); GLUCOSE, FASTING 114 MG/DL (74-106); POTASSIUM SERUM 3.5 MMOL/L (3.5-5.1); SODIUM LEVEL 130 MMOL/L (136-145)
[2023-10-30 10:00] VITALS: BP 121/75; TEMP 97.5; O2SAT 97
[2023-10-30] MEDS: AMOXICILLIN 875 MG TAB PO SCH (12:18)
[2023-10-30] MEDS: PERCOCET 5MG/325MG TAB PO ONE (12:18)
[2023-10-30 14:00] VITALS: BP 117/75; TEMP 97.3; O2SAT 96
[2023-10-30 18:00] VITALS: BP 119/75; TEMP 97.5; O2SAT 98
[2023-10-30] MEDS: PERCOCET 5MG/325MG TAB PO PRN (18:10)
[2023-10-30 22:00] VITALS: BP 120/75; TEMP 97.5; O2SAT 97
[2023-10-31] VITALS (7 sets, daily range): BP systolic 117–135; BP diastolic 71–78; TEMP 97–97.5; O2SAT 95–99
[2023-10-31 06:22] LABS: HEMATOCRIT 24.2 % (42.0-52.0); HEMOGLOBIN 8.4 g/dl (13.5-17.5); MEAN CORPUSCULAR HEMOGLOBIN 31.5 pg (27.0-33.0); MEAN CORPUSCULAR HGB CONC 34.7 g/dl (32.0-36.5); MEAN CORPUSCULAR VOLUME 90.6 fl (80.0-96.0); RED BLOOD COUNT 2.67 10^6/uL (4.30-6.10); WHITE BLOOD COUNT 7.9 10^3/uL (4.0-10.0)
[2023-10-31 06:25] LABS: PLATELET COUNT, AUTOMATED 96 10^3/uL (150-450)
[2023-10-31 06:44] LABS: CALCIUM LEVEL 7.3 MG/DL (8.3-10.6); CREATININE FOR GFR 1.28 MG/DL (0.70-1.30); GLOMERULAR FILTRATION RATE 59.9 (>49); POTASSIUM SERUM 3.7 MMOL/L (3.5-5.1)
[2023-10-31] MEDS ORDERED: FENTANYL REMOVAL DOCUMENTATION MISC XX SCH (09:00)
[2023-10-31] MEDS: MOM 30ML SUSPENSION UDC PO PRN (09:44)
[2023-10-31] MEDS: FUROSEMIDE 40MG/4ML VIAL IV ONE (09:44)
[2023-10-31] MEDS: SODIUM CHLORIDE 0.9% INJ 10 ML SYR IV PRN (09:45)
[2023-10-31 10:11] LABS: OSMOLALITY URINE 318 MOSM/KG (50-1400)
[2023-10-31 10:32] LABS: SODIUM,RANDOM URINE < 10 MMOL/L
[2023-10-31] MEDS ORDERED: PERCOCET 5MG/325MG TAB PO ONE (13:05)
[2023-10-31] MEDS: MORPHINE 2 MG/ML 1ML VIAL IV ONE (13:23)
[2023-10-31] MEDS: PERCOCET 5MG/325MG TAB PO ONE (14:28)
[2023-10-31] MEDS ORDERED: HYDROMORPHONE HCL 0.5 MG/ 0.5 ML SYRINGE IV PRN (17:35)
[2023-10-31] MEDS ORDERED: HYDROcodone/APAP LIQUID 7.5-325MG 15ML UDC (LORTAB ELIXIR) PO PRN (17:35)
[2023-10-31] MEDS ORDERED: OXYC5SOL11 PO (17:40)
[2023-10-31] MEDS: SCOPOLAMINE 1MG TRANSDERMAL PATCH TOP SCH (18:10)
[2023-10-31] MEDS: SUCRALFATE SUSP 1GM/10ML UD PO SCH (18:10)
[2023-10-31] MEDS: fentaNYL 25 MCG/HR PATCH TOP SCH (18:12)
[2023-10-31] MEDS: HYDROcodone/APAP LIQUID 7.5-325MG 15ML UDC (LORTAB ELIXIR) PO ONE (18:13)
[2023-10-31] MEDS: MORPHINE 10MG/0.5ML ORAL CONCENTRATE SOLUTION U/D SL PRN (18:13)
[2023-10-31] MEDS: oxyCODONE 5MG TAB PO ONE (18:42)
[2023-10-31] MEDS: GABAPENTIN 300 MG CAP PO SCH (20:22)
[2023-10-31] MEDS: SENOKOT S TAB PO SCH (20:23)
[2023-10-31] MEDS: oxyCODONE 5MG TAB PO SCH (20:24)
[2023-10-31] MEDS: METHYLNALTREXONE BROMIDE 12MG/0.6ML VIAL (RELISTOR) SC ONE (20:24)
[2023-10-31] MEDS ORDERED: SENOKOT S TAB PO SCH (21:00)
[2023-10-31] MEDS: HYDROMORPHONE HCL 0.5 MG/ 0.5 ML SYRINGE IV PRN (23:24)
[2023-11-01] MEDS: oxyCODONE 5MG TAB PO PRN ×3 (02:24→21:08)
[2023-11-01] MEDS: BISACODYL 5MG TAB PO SCH (08:39)
[2023-11-01] MEDS: MIRALAX *UNIT DOSE* 17GM PACKET PO SCH (08:42)
[2023-11-01] MEDS ORDERED: METHYLNALTREXONE BROMIDE 12MG/0.6ML VIAL (RELISTOR) SC PRN (09:30)
[2023-11-01] MEDS: oxyCODONE 5MG TAB PO ONE (10:10)
[2023-11-01] MEDS: HYDROMORPHONE HCL 0.5 MG/ 0.5 ML SYRINGE IV ONE (10:11)
[2023-11-01] MEDS ORDERED: oxyCODONE 5MG TAB PO SCH (12:00)
[2023-11-01] MEDS: HYDROMORPHONE HCL 0.5 MG/ 0.5 ML SYRINGE IV PRN (17:15)
[2023-11-01] MEDS: ALPRAZolam 0.25 MG TAB PO ONE (21:11)
[2023-11-02] MEDS: HYDROMORPHONE HCL 0.5 MG/ 0.5 ML SYRINGE IV PRN (07:24)
[2023-11-02] MEDS ORDERED: ALPRAZolam 0.5 MG TAB PO PRN (09:00)
[2023-11-02] MEDS: HYDROMORPHONE HCL 0.5 MG/ 0.5 ML SYRINGE IV ONE (09:28)
[2023-11-02] MEDS: PROMETHAZINE 25MG/ML 1ML VIAL IV PRN (09:28)
[2023-11-02] MEDS ORDERED: oxyCODONE 5MG TAB PO ONE (11:00)
[2023-11-02] MEDS: ALPRAZolam 0.5 MG TAB PO PRN (15:48)
[2023-11-02] MEDS: MORPHINE 10MG/0.5ML ORAL CONCENTRATE SOLUTION U/D SL PRN (22:52)
== END 2023-11-03 00:40 | disposition expired | DRG 699 ==
LOC: M ED 15:24 → M ED INP 22:27 → M MSPAV 23:31
PROVIDERS: ADMIT Internal Medicine; ATTEND General Practice
PROC: 30233N1 Transfusion of Nonautologous Red Blood Cells into Peripheral Vein, Percutaneous Approach (ICD-10-PCS; principal; 2023-10-26)
DX: N30.41 Irradiation cystitis with hematuria (principal); C78.6 Secondary malignant neoplasm of retroperitoneum and peritoneum; C78.7 Secondary malignant neoplasm of liver and intrahepatic bile duct; E87.1 Hypo-osmolality and hyponatremia; N13.30 Unspecified hydronephrosis; D62 Acute posthemorrhagic anemia; C79.51 Secondary malignant neoplasm of bone; K92.2 Gastrointestinal hemorrhage, unspecified; I48.21 Permanent atrial fibrillation; K56.7 Ileus, unspecified; C77.2 Secondary and unspecified malignant neoplasm of intra-abdominal lymph nodes; R33.9 Retention of urine, unspecified; C61 Malignant neoplasm of prostate; K43.5 Parastomal hernia without obstruction or gangrene; Z79.52 Long term (current) use of systemic steroids; Z51.5 Encounter for palliative care; Z66 Do not resuscitate; F41.9 Anxiety disorder, unspecified; R57.1 Hypovolemic shock; K62.7 Radiation proctitis; R60.1 Generalized edema; D69.6 Thrombocytopenia, unspecified; T40.2X5A Adverse effect of other opioids, initial encounter; G47.00 Insomnia, unspecified; K59.03 Drug induced constipation; G89.3 Neoplasm related pain (acute) (chronic); Z93.6 Other artificial openings of urinary tract status; Z79.69 Long term (current) use of other immunomodulators and immunosuppressants; Z79.891 Long term (current) use of opiate analgesic; Z79.899 Other long term (current) drug therapy; Z90.49 Acquired absence of other specified parts of digestive tract

== ENCOUNTER → 2023-10-30 | Outpatient (RCR) | payer MEDICARE ==
[~2023-10-30] MED LIST changes: +DOCU100C16 PO; +FUROSEMIDE 20MG/2ML VIAL As Ordered ONE; +OXYC5SOL11 PO; +TAMS1CAP17 PO
== END ==
LOC: M ONCR 10-29 09:23
PROVIDERS: ATTEND General Practice
DX: Z51.0 Encounter for antineoplastic radiation therapy (principal); C61 Malignant neoplasm of prostate

== ENCOUNTER 2023-10-31 10:46 | Outpatient (RCR) | payer MEDICARE ==
[~2023-10-31 10:46] MED LIST changes: -FUROSEMIDE 20MG/2ML VIAL As Ordered ONE; -OXYC5SOL11 PO
[2023-10-31] MEDS ORDERED: OXYC5SOL11 PO (17:40)
== END 2023-11-03 ==
LOC: M ONCR 10:46
PROVIDERS: ATTEND General Practice
DX: Z51.0 Encounter for antineoplastic radiation therapy (principal); C61 Malignant neoplasm of prostate